=== PATIENT | male | born 1970 | race Hispanic/Latino ===

== ENCOUNTER 2016-12-16 03:21 | Emergency (ER) | payer SELFPAY ==
[2016-12-16] MEDS ORDERED: Bicillin LA 1.2 MILLION UNITS/2 ML SYRINGE ONE (03:46)
[2016-12-16] MEDS ORDERED: HYDROcodone/Acetaminophen 10/325 mg Tablet ONE (03:52)
== END 2016-12-16 04:20 | disposition home or self-care (01) ==
LOC: NAV ERS 03:21
DX: K02.9 Dental caries, unspecified (principal); K04.7 Periapical abscess without sinus; E11.9 Type 2 diabetes mellitus without complications; I10 Essential (primary) hypertension; Z79.84 Long term (current) use of oral hypoglycemic drugs
CPT/HCPCS: 96372; J0561

== ENCOUNTER 2018-01-27 13:46 | Emergency (ER) | payer SELFPAY ==
[2018-01-27] MEDS ORDERED: HYDROcodone/Acetaminophen 5/325 mg Tablet ONE (14:10)
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
== END 2018-01-27 15:12 | disposition home or self-care (01) ==
LOC: NAV ERS 13:46
DX: S90.32XA Contusion of left foot, initial encounter (principal); F17.210 Nicotine dependence, cigarettes, uncomplicated; E11.9 Type 2 diabetes mellitus without complications; I10 Essential (primary) hypertension; W01.198A Fall on same level from slipping, tripping and stumbling with subsequent striking against other object, initial encounter

== ENCOUNTER 2019-12-18 14:11 | Emergency (ER) | payer SELFPAY ==
[2019-12-18 14:35] LABS: #Basophils 0.1 thou/uL (0.0-0.2); #Eosinphils 0.1 thou/uL (0.0-0.7); #Lymphocytes 2.1 thou/uL (1.20-3.40); #Monocytes 0.6 thou/uL (0.11-0.59); #Neutrophils 7.1 thou/uL (1.40-6.50); %Basophils 0.8 % (0.0-1.0); %Eosinophils 1.4 % (0.0-10.0); %Lymphocytes 20.9 % (21.0-51.0); %Monocytes 5.7 % (0.0-10.0); %Neutrophils 71.2 % (42.0-75.0); Hemoglobin 14.3 g/dL (14.0-18.0); Mean Corpuscular HGB CONC 32.9 g/dL (32.0-36.0); Mean Corpuscular Hemoglobin 30.3 pg (27.0-31.0); Mean Corpuscular Volume 92.3 fL (78.0-98.0); Mean Platelet Volume 7.3 fL (7.4-10.4); Platelet Count 206 thou/uL (130-400); RBC Distribution Width 10.6 % (11.5-14.5); Red Blood Cell (RBC) Count 4.72 mill/uL (4.70-6.10)
[2019-12-18 15:07] LABS: ALT (SGPT) 20 U/L (8-55); AST (SGOT) 18 U/L (5-34); Albumin 3.9 g/dL (3.5-5.0); Alkaline Phosphatase 101 U/L (40-110); Anion Gap 14 mmol/L (10-20); BUN (Urea Nitrogen) 21 mg/dL (8.9-20.6); Bilirubin, Total 0.4 mg/dL (0.2-1.2); Calc. Creatinine Clearance 0 mL/min (70-130); Calcium 9.4 mg/dL (7.8-10.44); Carbon Dioxide 24 mmol/L (22-29); Chloride 99 mmol/L (98-107); Estimated GFR-MDRD 78; Globulin 3.3 g/dL (2.4-3.5); Glucose 401 mg/dL (70-105); Protein, Total 7.2 g/dL (6.0-8.3); Sodium 133 mmol/L (136-145)
[2019-12-18] MEDS ORDERED: Insulin Regular 300 UNITS/3 ML VIAL ONE (16:25)
[2019-12-18] MEDS ORDERED: Sodium Chloride 0.9% 1,000 ML ONE (16:25)
[2019-12-18] MEDS ORDERED: Sodium Chloride 0.9% 100 ML ONE (16:29)
[2019-12-18] MEDS ORDERED: CEFAZOLIN 1 GM VIAL ONE (16:29)
== END 2019-12-18 17:40 | disposition short-term general hospital (02) ==
LOC: NAV ERS 14:11
DX: T25.332A Burn of third degree of left toe(s) (nail), initial encounter (principal); E11.9 Type 2 diabetes mellitus without complications; I10 Essential (primary) hypertension; F17.210 Nicotine dependence, cigarettes, uncomplicated; X11.8XXA Contact with other hot tap-water, initial encounter
CPT/HCPCS: 36416; 80053; 85025; 96365; 96375; J0690; J1815; J3490; J7050

== ENCOUNTER 2022-02-28 21:34 | Emergency (ER) | payer OTHER, SELFPAY ==
[2022-02-28] MEDS ORDERED: Sulfameth/Trimethoprim DS 800-160mg TAB ONE (22:11)
[2022-02-28] MEDS ORDERED: Cephalexin 250 MG CAP ONE (22:11)
== END 2022-02-28 22:20 | disposition home or self-care (01) ==
LOC: NAV ERS 21:34
DX: L02.416 Cutaneous abscess of left lower limb (principal); E11.9 Type 2 diabetes mellitus without complications; I10 Essential (primary) hypertension; F17.210 Nicotine dependence, cigarettes, uncomplicated
CPT/HCPCS: 36416; 87070; 87077; 87186; 87205; 99283

== ENCOUNTER 2023-01-03 19:14 | Emergency (ER) | payer SELFPAY ==
[2023-01-03 20:30] LABS: #Basophils 0.1 thou/uL (0.0-0.2); #Eosinphils 0.1 thou/uL (0.0-0.7); #Lymphocytes 1.9 thou/uL (1.20-3.40); #Monocytes 0.7 thou/uL (0.11-0.59); #Neutrophils 6.8 thou/uL (1.40-6.50); %Basophils 0.9 % (0.0-1.0); %Eosinophils 1.4 % (0.0-10.0); %Lymphocytes 20.1 % (21.0-51.0); %Monocytes 6.8 % (0.0-10.0); Hematocrit 36.3 % (42.0-52.0); Mean Platelet Volume 6.4 fL (7.4-10.4); Platelet Count 240 10x3/uL (130-400); RBC Distribution Width 11.1 % (11.5-14.5); Red Blood Cell (RBC) Count 3.99 mill/uL (4.70-6.10); White Blood Cell (WBC) Count 9.6 10x3/uL (4.8-10.8)
[2023-01-03] MEDS ORDERED: Clindamycin/D5W 900 mg/50 ml Premix Bag ONE (20:44)
[2023-01-03] MEDS ORDERED: Ketorolac Tromethamine 30 MG/ML VIAL ONE (20:44)
[2023-01-03] MEDS ORDERED: Insulin Regular 300 UNITS/3 ML VIAL ONE (20:44)
[2023-01-03 20:45] LABS: Base Excess-Venous 1.1 mmol/L (-2.0 to 3.0); Bicarbonate (HCO3v) 26.7 mmol/L (22.0-28.0); CO2 Tension (PvCO2) 45.3 mmHg (42.0-51.0); Calcium, Ionized 1.27 mmol/L (1.15-1.33); Chloride 95 mmol/L (98-107); Hemoglobin - Calc 13.4 g/dL (14.0-18.0); Potassium 4.3 mmol/L (3.5-5.1); Sodium 131 mmol/L (138-145); T. Carbon Dioxide 28.1 mmol/L (22.0-28.0); vO2 Saturation-calc 87.6 % (60.0-85.0)
[2023-01-03 20:46] LABS: Bilirubin Negative (Negative); Blood, Urine Trace (Negative); Clarity Clear (Clear); Glucose, Urine (Dipstick) 500 mg/dL (Negative); Ketone, Urine Negative (Negative); Leukocyte Negative (Negative); Nitrite Negative (Negative); Protein, Urine (Dipstick) 30 mg/dL (Neg-Trace); Urobilinogen 0.2 mg/dL (Less than 2); pH, Urine 5.5 (5.0-9.0)
[2023-01-03 20:47] LABS: Specific Gravity, Urine 1.005 (1.002-1.036)
[2023-01-03 20:49] LABS: Bacteria/HPF Rare-Few HPF (None Seen); CAUTI Indications for Culture Fever or rigors; RBC/HPF 0-3 HPF (0-3); Squamous Epithelial None Seen HPF (0-3); Urine Culture Reflex No No; WBC/HPF 0-3 HPF (0-3)
[2023-01-03 20:51] LABS: ALT (SGPT) 15 U/L (8-55); AST (SGOT) 14 U/L (5-34); Albumin 3.5 g/dL (3.5-5.0); Alkaline Phosphatase 108 U/L (40-110); Anion Gap 13 mmol/L (10-20); BUN (Urea Nitrogen) 17 mg/dL (8.9-20.6); Bilirubin, Total 0.3 mg/dL (0.2-1.2); Calc. Creatinine Clearance 0 mL/min (70-130); Calcium 9.5 mg/dL (7.8-10.44); Carbon Dioxide 25 mmol/L (22-29); Chloride 94 mmol/L (98-107); Estimated GFR 81; Globulin 3.6 g/dL (2.4-3.5); Potassium 4.1 mmol/L (3.5-5.1); Protein, Total 7.1 g/dL (6.0-8.3); Sodium 128 mmol/L (136-145)
[2023-01-03 20:52] LABS: Glucose 589 mg/dL (70-105)
[2023-01-03] MEDS ORDERED: Sodium Chloride 0.9% 1,000 ML ONE (22:35)
[2023-01-03] MEDS ORDERED: Ondansetron PF 4 MG/2 ML Vial ONE (22:49)
[2023-01-03] MEDS ORDERED: Morphine 2 MG/ML VIAL ONE (22:49)
[2023-01-04 11:59] LABS: Hemoglobin A1c 13.1 % (4.0-6.0)
== END 2023-01-04 03:05 | disposition short-term general hospital (02) ==
LOC: NAV ERS 19:14
DX: E11.65 Type 2 diabetes mellitus with hyperglycemia (principal); E11.621 Type 2 diabetes mellitus with foot ulcer; L97.419 Non-pressure chronic ulcer of right heel and midfoot with unspecified severity; L03.115 Cellulitis of right lower limb; M79.671 Pain in right foot; I10 Essential (primary) hypertension; F17.210 Nicotine dependence, cigarettes, uncomplicated
CPT/HCPCS: 36415; 36416; 80053; 81001; 82010; 82330; 82803; 83036; 83605; 85025; 85379; 86140; 87040; 87070; 87077; 87205; 96361; 96365; 96374; 96375; J1815; J1885; J2272; J2405; J3490; J7050

== ENCOUNTER 2024-04-02 09:35 | Emergency (ER) | payer SELFPAY ==
[2024-04-02 10:19] LABS: #Basophils 0.1 thou/uL (0.0-0.2); #Eosinophils 0.2 thou/uL (0.0-0.7); #Lymphocytes 1.5 thou/uL (1.20-3.40); #Monocytes 0.8 thou/uL (0.11-0.59); %Basophils 0.8 % (0.0-1.0); %Eosinophils 1.8 % (0.0-10.0); %Lymphocytes 17.3 % (21.0-51.0); %Monocytes 9.3 % (0.0-10.0); %Neutrophils 70.9 % (42.0-75.0); Hematocrit 35.9 % (42.0-52.0); Hemoglobin 11.9 g/dL (14.0-18.0); Mean Corpuscular HGB CONC 33.3 g/dL (32.0-36.0); Mean Corpuscular Hemoglobin 28.7 pg (27.0-31.0); Mean Corpuscular Volume 86.2 fl (78.0-98.0); Mean Platelet Volume 6.7 fL (7.4-10.4); Platelet Count 259 10x3/uL (130-400); RBC Distribution Width 10.2 % (11.5-14.5); Red Blood Cell (RBC) Count 4.16 mill/uL (4.70-6.10); White Blood Cell (WBC) Count 8.5 10x3/uL (4.8-10.8)
[2024-04-02 10:36] LABS: ALT (SGPT) 10 U/L (Less than 45); AST (SGOT) 17 U/L (11-34); Albumin 3.2 g/dL (3.1-4.5); Alkaline Phosphatase 74 U/L (40-110); Anion Gap 12 mmol/L (10-20); BUN (Urea Nitrogen) 22 mg/dL (8.4-25.7); Bilirubin, Total 0.3 mg/dL (0.3-1.2); Calc. Creatinine Clearance 0 mL/min (70-130); Calcium 9.8 mg/dL (7.8-10.44); Carbon Dioxide 28 mmol/L (22-29); Chloride 99 mmol/L (98-107); Estimated GFR 104; Globulin 3.8 g/dL (2.4-3.5); Glucose 260 mg/dL (70-105); Potassium 3.9 mmol/L (3.5-5.1); Sodium 135 mmol/L (136-145)
[2024-04-02 10:38] LABS: Troponin I Less than 0.010 ng/mL (< 0.028)
[2024-04-02] MEDS ORDERED: Cephalexin 500 MG CAP ONE (10:44)
[2024-04-03] MEDS ORDERED: Bupivacaine 0.5% 10 ML VIAL ONE (00:33)
== END 2024-04-02 11:16 | disposition home or self-care (01) ==
LOC: NAV ERS 09:35
DX: L03.032 Cellulitis of left toe (principal); E11.9 Type 2 diabetes mellitus without complications; I10 Essential (primary) hypertension; F17.210 Nicotine dependence, cigarettes, uncomplicated; W20.8XXA Other cause of strike by thrown, projected or falling object, initial encounter
CPT/HCPCS: 36416; 80053; 83605; 84484; 85025; 99283